=== PATIENT | male | born 1970 | race African-American/Black ===

== ENCOUNTER 2016-12-30 16:09 | Inpatient (IN) ==
--- NOTE | 2016-12-30 17:53 | PROVIDER DOCUMENTATION ---
This chart was entered by Trenton Cisneros Scribe, acting as scribe for Victor Manuel Parrish CRNP. HPI-General Adult - General Source: patient - History of Present Illness -Gen Adult Location of Pain/Injury: reports: lower extremity Quality of Pain: reports: dull Severity: reports: moderate Onset/Duration: reports: unsure Timing: reports: still present, constant Context/Activities at Onset: reports: other Modifying Factors: improves with: nothing Associated Symptoms: denies: back/neck pain, chest pain, diarrhea, fever/chills , nausea, shortness of breath, vomiting Similar Symptoms Previously?: Yes Recently seen or treated by another doctor?: Yes <Binta Thorne - Last Filed: 12/30/16 19:46> <Mandeep He I - Last Filed: 01/02/17 01:12> - General Source: patient - History of Present Illness -Gen Adult Nature of Presenting Problems: Patient is a 46 y/o M that presents to the ER with bilateral lower extremities swelling and redness. Has been followed by Dr.Leroy Ortiz and being treated for cellulitis Location of Pain/Injury: reports: lower extremity (bilateral lower) Quality of Pain: reports: dull Severity: reports: moderate Onset/Duration: reports: unsure Timing: reports: still present, constant Context/Activities at Onset: reports: other (infection) Modifying Factors: improves with: nothing Associated Symptoms: denies: back/neck pain, chest pain, diarrhea, fever/chills , nausea, shortness of breath, vomiting Similar Symptoms Previously?: Yes Recently seen or treated by another doctor?: Yes <Victor Manuel Parrish - Last Filed: 01/02/17 15:49> - General Chief Complaint: Edema Stated Complaint: SENT BY DR ORTIZ FOR EVAL Time Seen by Provider: 12/30/16 17:00 Allergies/Adverse Reactions: Patient Allergies Allergy/AdvReac Type Severity Reaction Status Date / Time Sulfa (Sulfonamide Allergy HIVES Verified 12/30/16 17:25 Antibiotics) sulfamethoxazole Allergy HIVES Verified 12/30/16 17:25 [From Bactrim] trimethoprim [From Bactrim] Allergy HIVES Verified 12/30/16 17:25 Home Medications: Home Medication List Medication Instructions Recorded Confirmed Last Taken Type Allopurinol 300 mg PO DAILY 06/27/16 12/30/16 12/30/16 05:00 History Amlodipine [Norvasc] 5 mg PO DAILY 06/27/16 12/30/16 12/30/16 05:00 History Cholecalciferol (Vitamin D3) 50,000 unit PO DIRECTED 06/27/16 12/30/16 05:00 History [D3-50] Cyclobenzaprine [Flexeril] 10 mg PO HS 06/27/16 12/30/16 12/29/16 21:00 History Glipizide [Glipizide ER] 10 mg PO DAILY 06/27/16 12/30/16 12/30/16 05:00 History Ibuprofen/Famotidine [Duexis 1 each PO TID 06/27/16 12/30/16 12/30/16 05:00 History 800-26.6 mg Tablet] Levothyroxine [Synthroid] 0.2 microgm PO DAILY 06/27/16 12/30/16 12/30/16 05:00 History Metoprolol [Lopressor] 50 mg PO DAILY 06/27/16 12/30/16 12/30/16 05:00 History Sitagliptin Phosphate [Januvia] 100 mg PO DAILY 06/27/16 12/30/16 12/30/16 05: 00 History Calcium Citrate/Vitamin D3 1 each PO DAILY 12/01/16 12/30/16 12/29/16 05:00 History [Calcium Citrate - Vit D3 Tab] Cyanocobalamin [Vitamin B-12] 500 microgm PO DAILY 12/01/16 12/30/16 12/30/16 05 :00 History Fluticasone 50 Mcg Nasal [place] 2 spray RODERICK DAILY 12/01/16 12/30/16 12/30/16 05: 00 History [Flonase] Iron 65 mg PO DAILY 12/01/16 12/30/16 12/30/16 05:00 History Multivitamin [Men's Multi-Vitamin] 1 each PO DAILY 12/01/16 12/30/16 12/30/16 05 :00 History Phytonadione [Vitamin K] 100 mcg PO DAILY 12/01/16 12/30/16 12/30/16 05:00 History Pyridoxine HCl [Vitamin B-6] 100 mg PO DAILY 12/01/16 12/30/16 12/30/16 05:00 History Vitamin A 8,000 unit PO DAILY 12/01/16 12/30/16 12/30/16 05:00 History Vitamin E 400 unit PO DAILY 12/01/16 12/30/16 12/30/16 05:00 History Montelukast [Singulair] 10 mg PO QHS 12/30/16 12/30/16 12/29/16 21:00 History Hydrochlorothiazide 25 mg PO DAILY #30 tablet 01/01/17 Unknown Rx Losartan [Cozaar] 100 mg PO DAILY #30 tablet 01/01/17 Unknown Rx Review of Systems - Adult - REVIEW OF SYSTEMS - ADULT Constitutional: reports: no symptoms reported. denies: chills, fever Eyes: reports: no symptoms reported Ears, Nose, Mouth & Throat: reports: no symptoms reported Cardiovascular: reports: edema. denies: chest pain, orthopnea, palpitations Respiratory: denies: cough, shortness of breath, wheezing Gastrointestinal: denies: abdominal pain, diarrhea, difficulty swallowing, nausea, vomiting Genitourinary: denies: dysuria, frequency, hematuria Musculoskeletal: reports: no symptoms reported Integumentary: reports: see HPI, skin sores/ulcer (Bilateral lower extremity edema with erythema and hot to touch.) Neurological: reports: no symptoms reported Psychiatric: reports: no symptoms reported Endocrine: reports: no symptoms reported Hematologic/Lymphatic: reports: no symptoms reported Allergic/Immunologic: reports: no symptoms reported All Other Systems: Reviewed and Negative <Binta Thorne - Last Filed: 12/30/16 19:46> - REVIEW OF SYSTEMS - ADULT Constitutional: reports: no symptoms reported. denies: chills, fever Eyes: reports: no symptoms reported Ears, Nose, Mouth & Throat: reports: no symptoms reported Cardiovascular: reports: edema. denies: chest pain, orthopnea, palpitations Respiratory: denies: cough, shortness of breath, wheezing Gastrointestinal: denies: abdominal pain, diarrhea, difficulty swallowing, nausea, vomiting Genitourinary: denies: dysuria, frequency, hematuria Musculoskeletal: reports: no symptoms reported Integumentary: reports: see HPI Neurological: reports: no symptoms reported Psychiatric: reports: no symptoms reported Endocrine: reports: no symptoms reported Hematologic/Lymphatic: reports: no symptoms reported Allergic/Immunologic: reports: no symptoms reported All Other Systems: Reviewed and Negative <Victor Manuel ParrishOlga - Last Filed: 01/02/17 15:49> Past History - Adult - PAST MEDICAL HISTORY-ADULT Review of Records: reports: Old Records Reviewed, Nursing Assessment Review, Medications Reviewed, Social history reviewed & non-contributory. - IMMUNIZATION STATUS Childhood Immunizations: See Nurse Assessment Flu Vaccine: See Nurse Assessment - FAMILY HISTORY Family History: reviewed, not pertinent - SOCIAL HISTORY Smoking: non-smoker <Binta Thorne - Last Filed: 12/30/16 19:46> - PAST MEDICAL HISTORY-ADULT Review of Records: reports: Old Records Reviewed, Nursing Assessment Review, Medications Reviewed Cardiovascular: reports: HTN Musculoskeletal: reports: arthritis Endocrine/Immune: reports: Diabetes, thyroid disorder Other Conditions: reports: denies history - PRIOR SURGERIES/PROCEDURES Surgical/Procedure History: reports: cholecystectomy, orthopedic (extremity), joint replacement, gastric bypass - IMMUNIZATION STATUS Childhood Immunizations: See Nurse Assessment Flu Vaccine: See Nurse Assessment - FAMILY HISTORY Family History: reviewed, not pertinent - SOCIAL HISTORY Smoking: non-smoker Living Situation: family <Victor Manuel ParrishOlga - Last Filed: 01/02/17 15:49> Physical Exam-General - PHYSICAL EXAM-ADULT Initial Vital Signs Reviewed: Yes - CONSTITUTIONAL General Appearance: alert, mild distress. negative: anxious, lethargic, slow to respond, obtunded, combative - EYES Eyes: PERRL/EOMI, pink conjunctivae. negative: conjuctival exudate, scleral icterus, subconjunctival hemorrhage - HEAD, EARS, NOSE, MOUTH & THROAT HENMT: normocephalic/atraumatic, moist mucous membranes, normal ENT inspection. negative: angioedema, frontal tenderness, maxillary tenderness - NECK Neck: full range of motion, normal inspection. negative: lymphadenopathy, thyromegaly - RESPIRATORY Respiratory: lungs clear, normal breath sounds, no respiratory distress, no accessory muscle use. negative: crackles, rales, rhonchi, stridor, wheezing, splinting, decreased rate, increased rate - CARDIOVASCULAR Cardiovascular: no JVD, no murmur, tachycardia. negative: extra beats, friction rub, irregularly irregular - GASTROINTESTINAL (ABDOMEN) Abdominal Exam: normal bowel sounds, non tender, soft, no organomegaly, no pulsatile mass. negative: distended, guarding, rigid, rebound, tenderness, hernia, mass - LYMPHATIC Lymphatic: no adenopathy. negative: axilla node tender, cervical node tenderness - MUSCULOSKELETAL Back Exam: normal inspection, no CVA tenderness, no vertebral tenderness. negative: ecchymosis, swelling, vertebral tenderness Extremity: erythema, swelling Peripheral Pulses: radial (R): 2+, radial (L): 2+ - SKIN Integumentary: erythema, warm. negative: cyanosis, diaphoresis, ecchymosis, jaundice, mottled, pallor, petechiae, purpura, rash - NEUROLOGIC Neurologic: grossly normal, no motor/sensory deficits. negative: aphasia, facial droop, focal weakness, motor weakness, sensory deficit - PSYCHIATRIC Psych/Mental Status: normal mood/affect, normal thought content, normal thought process, oriented x 3. negative: anxious, paranoid, tearful <Binta Thorne - Last Filed: 12/30/16 19:46> - PHYSICAL EXAM-ADULT Initial Vital Signs Reviewed: Yes - CONSTITUTIONAL General Appearance: alert, mild distress - EYES Eyes: PERRL/EOMI, pink conjunctivae - HEAD, EARS, NOSE, MOUTH & THROAT HENMT: normocephalic/atraumatic, moist mucous membranes, normal ENT inspection - NECK Neck: full range of motion, normal inspection - RESPIRATORY Respiratory: lungs clear, normal breath sounds, no respiratory distress, no accessory muscle use - CARDIOVASCULAR Cardiovascular: tachycardia - GASTROINTESTINAL (ABDOMEN) Abdominal Exam: normal bowel sounds, non tender, soft, no organomegaly, no pulsatile mass - MUSCULOSKELETAL Extremity: erythema (bilateral lower extremities), swelling (bilateral lower extremities) - SKIN Integumentary: erythema (bilateral lower extremities), warm (bilateral lower extremities) - NEUROLOGIC Neurologic: grossly normal, no motor/sensory deficits - PSYCHIATRIC Psych/Mental Status: normal mood/affect, normal thought content, normal thought process, oriented x 3 <Victor Manuel Parrish - Last Filed: 01/02/17 15:49> Progress - PLAN OF CARE/RESULTS Progress/Plan/Lab Results: Vital Signs - 8 hr 12/30/16 16:41 Temperature 97.9 F Pulse Rate 109 H Respiratory Rate 18 Blood Pressure 117/65 O2 Sat by Pulse Oximetry 100 Laboratory Results - last 24 hr 12/30/16 12/30/16 17:40 17:40 WBC 11.93 H RBC 3.34 L Hgb 9.7 L Hct 29.5 L MCV 88.3 MCH 29.0 MCHC 32.9 L RDW Std Deviation 12.1 Plt Count 279 MPV 10.1 Immature Gran % (Auto) 0.3 Neut % (Auto) 80.9 H Lymph % (Auto) 6.4 L Kershaw % (Auto) 11.2 H Eos % (Auto) 1.1 Baso % (Auto) 0.1 Immature Gran # (Auto) 0.03 Neut # (Auto) 9.66 H Lymph # (Auto) 0.76 L Kershaw # (Auto) 1.34 H Eos # (Auto) 0.13 Baso # (Auto) 0.01 Plasma Lactate 1.6 Orders Category Date Time Status Regular Diet Diet 12/30/16 18:45 Active BLOOD CULTURE [BLDCUL] Stat Lab 12/30/16 18:43 Received CBC WITH ELECTRONIC DIFF [HEME] Stat Lab 12/30/16 17:40 Completed COMPREHENSIVE METABOLIC PANEL [CHEM] Stat Lab 12/30/16 17:40 Received LACTATE, PLASMA [CHEM] Stat Lab 12/30/16 17:40 Completed Discussed results and plan of care with patient. Patient agrees with plan and verbalizes understanding. Result Diagrams: 12/30/16 17:40 12/30/16 17:40 - CONSULTS/PCP/HOSPITALIST Notification #1 *Consult/PCP/Hospitalist*: Dr. Valdovinos Time Discussed: 19:11 Reason/Comments: Admission Consult Disposition: Will see in ED, Admit <Binta Thorne - Last Filed: 12/30/16 19:46> - PLAN OF CARE/RESULTS Progress/Plan/Lab Results: 12/30/16 18:43 - Final Blood Orders Category Date Time Status Admit - [facility] Routine AdmDCTranf 12/30/16 21:20 Ordered Activity - Up with Assistance ORDERED Care 12/30/16 21:20 Active FSBS/Accucheck Result AC + HS Care 12/30/16 21:20 Active Intake and Output-Strict ORDERED Care 12/30/16 21:20 Active Misc. NRSG Communication Order DIRECTED Care 12/30/16 21:20 Active Nursing- MD Consult Request ROUTINE Care 12/30/16 21:20 Active Vital Signs Order Q 8-HR ASSESS Care 12/30/16 21:20 Active Physician/Provider Consults Routine Cons 12/30/16 21:20 Ordered Diabetic Diet Diet 12/30/16 20:18 Completed A1C HGB W EST AVG GLUCOSE [CHEM] Stat Lab 12/30/16 18:48 Completed BLOOD CULTURE [BLDCUL] Stat Lab 12/30/16 18:43 Results CBC WITH DIFF [HEME] Routine Lab 12/31/16 05:30 Completed CBC WITH ELECTRONIC DIFF [HEME] Stat Lab 12/30/16 17:40 Completed COMPREHENSIVE METABOLIC PANEL [CHEM] Routine Lab 12/31/16 05:30 Completed COMPREHENSIVE METABOLIC PANEL [CHEM] Stat Lab 12/30/16 17:40 Completed GRAM STAIN [BLDCUL] Stat Lab 12/30/16 18:43 Results LACTATE, PLASMA [CHEM] Stat Lab 12/30/16 17:40 Completed MAGNESIUM [CHEM] Routine Lab 12/31/16 05:30 Completed Acetaminophen [Tylenol] Med 12/30/16 21:20 Discontinued 650 mg PO Q6H PRN PRN Calcium Citrate/Vitamin D [Citracal + D] Med 12/31/16 09:00 Discontinued 1 each PO DAILY Cyanocobalamin [Vitamin B-12] Med 12/31/16 09:00 Discontinued 500 microgm PO DAILY Enoxaparin [Lovenox] Med 12/30/16 21:20 Discontinued 40 mg SUBQ Q24H Ergocalciferol (Vitamin D2) [Vitamin D] Med 01/02/17 09:00 Discontinued 50,000 unit PO TuSa Ferrous Sulfate Med 12/31/16 09:00 Discontinued 325 mg PO DAILY Fluticasone 50 Mcg Nasal [place] [Flonase] Med 12/31/16 09:00 Discontinued 2 spray RODERICK DAILY Furosemide [Lasix] Med 12/30/16 21:20 Discontinued 20 mg IV Q12H Furosemide [Lasix] Med 12/30/16 19:42 Discontinued 30 mg IV NOW ONE Hydrochlorothiazide Med 12/31/16 09:00 Discontinued 25 mg PO DAILY Hydrocodone/APAP 10 mg/325 mg [Cypress-10] Med 12/30/16 21:20 Discontinued 1 each PO Q4H PRN PRN Insulin Lispro [Humalog] Med 12/30/16 21:20 Discontinued See Protocol SUBQ NOW ONE Levothyroxine [Synthroid] Med 12/31/16 12:30 Discontinued 200 microgm PO ACB Metoprolol [Lopressor] Med 12/31/16 09:00 Discontinued 50 mg PO DAILY Multivit,Fe,Ca,FA & Min [Thera M Plus] Med 12/31/16 09:00 Discontinued 1 each PO DAILY Ondansetron [Zofran] Med 12/30/16 21:20 Discontinued 4 mg IV Q4H PRN PRN Patient's Own Med Med 12/31/16 09:00 Discontinued 1 each PO DAILY Pharmacy Order [Vancomycin IV Per Pharmacy] Med 12/30/16 21:20 Discontinued 1 each MISC DIRECTED Pyridoxine Med 12/31/16 09:00 Discontinued 100 mg PO DAILY Vancomycin 1,500 mg Med 12/30/16 20:45 Discontinued 0.9% Sodium Chloride Inj [Ns] 250 ml IV NOW Transfer/Admit Order [TRANSFER] Routine Transfer 12/30/16 19:47 Completed Result Diagrams: 01/01/17 05:20 01/01/17 05:20 <Mandeep He I - Last Filed: 01/02/17 01:12> - PLAN OF CARE/RESULTS Progress/Plan/Lab Results: Vital Signs - 8 hr 12/30/16 16:41 Temperature 97.9 F Pulse Rate 109 H Respiratory Rate 18 Blood Pressure 117/65 O2 Sat by Pulse Oximetry 100 Result Diagrams: 01/01/17 05:20 01/01/17 05:20 - CHANGE OF SHIFT REPORT (ED Provider) Report Given and Care Transferred to:: MELLY Diaz Items Pending: Labs <Victor Manuel Parrish - Last Filed: 01/02/17 15:49> Departure - Departure Date of Disposition Decision: 12/30/16 Time of Disposition Decision: 19:47 Certified Medical Emergency: Emergent - Critical Care Note This patient required my direct & personal management of CC.: No <Binta Thorne - Last Filed: 12/30/16 19:46> - Departure Certified Medical Emergency: Emergent <Mandeep He Last Filed: 01/02/17 01:12> - Departure Date of Disposition Decision: 12/30/16 Time of Disposition Decision: 21:00 Certified Medical Emergency: Emergent - Critical Care Note This patient required my direct & personal management of CC.: No <Victor Manuel Parrish - Last Filed: 01/02/17 15:49> - Departure DIAGNOSIS: Renal insufficiency Cellulitis Qualifiers: Site of cellulitis: extremity Site of cellulitis of extremity: lower extremity Laterality: unspecified laterality Qualified Code(s): L03.119 - Cellulitis of unspecified part of limb Anemia Qualifiers: Anemia type: unspecified type Qualified Code(s): D64.9 - Anemia, unspecified Disposition: ADMITTED INPATIENT 09 Condition: Stable Attestation - Physician/ LEAH Attestation #2 Shift Change Time: 18:00 Patient care was provided by Advanced Practice Provider:: Yes Advanced Practice Provider:: Binta Thorne (The physician is on site and available for consultation but did not have face to face contact with the patient. ) The physician spent face to face time with patient:: No <Binta Thorne - Last Filed: 12/30/16 19:46> - Physician/ LEAH Attestation Patient care was provided by Advanced Practice Provider:: Yes Advanced Practice Provider:: Victor Manuel Parrish Advanced Practice Provider documentation review:: The Mid-level provider documentation, treatment plan and medical decision making was reviewed by the physician who agrees with all treatment and medical decision making by the MLP. The physician spent face to face time with patient:: No Advanced Practice Provider documentation review:: Supervising physician onsite and consulted in the evaluation and care of this patient. The physician did not have a face to face encounter with the patient. - Physician/ LEAH Attestation #2 Advanced Practice Provider documentation review:: Supervising physician onsite and consulted in the evaluation and care of this patient. The physician did not have a face to face encounter with the patient. <Victor Manuel Parrish - Last Filed: 01/02/17 15:49> This chart was documented by the indicated scribe, (Trenton Cisneros Scribe) and accurately reflects the services I performed and decisions made by me, Victor Manuel Parrish CRNP, as attested by the provider's signature.
[2016-12-30 18:49] LABS: MANUAL DIFF NEEDED? NO
[2016-12-30 18:54] LABS: BASO% 0.1 % (0.0-0.8); EOS# 0.13 X1000 (0.0-0.7); EOS% 1.1 % (0.0-10.0); HEMATOCRIT 29.5 % (42.0-52.0); HEMOGLOBIN 9.7 g/dL (14.0-18.0); IMM GRAN# 0.03 X1000 (0.0-0.04); IMM GRAN% 0.3 % (0.0-0.5); LYMPH# 0.76 X1000 (1.2-3.4); LYMPH% 6.4 % (20.5-51.1); MCHC 32.9 g/dL (33-37); MCV 88.3 FL (81-99); MONO# 1.34 X1000 (0.11-0.59); MONO% 11.2 % (1.7-9.3); MPV 10.1 FL (7.4-10.4); NEUT% 80.9 % (42.2-75.2); PLT 279 X1000 (130-400); RBC 3.34 XMIL (4.7-6.1)
[2016-12-30 19:40] LABS: CALCIUM 8.2 mg/dL (8.8-10.2); POTASSIUM 3.6 mmol/L (3.5-5.1); TOTAL BILIRUBIN 0.11 mg/dL (0.20-1.00); TOTAL PROTEIN 6.3 g/dL (6.3-8.3)
[2016-12-30] MEDS ORDERED: LASIX IV ONE (19:42)
[2016-12-30] MEDS ORDERED: VANCOMYCIN 1,500 MG in NS 250 ML IV ONE (20:45)
[2016-12-30] MEDS ORDERED: VANCOMYCIN IV PER PHARMACY MISC SCH (21:20)
[2016-12-30] MEDS ORDERED: TYLENOL PO PRN (21:20)
[2016-12-30] MEDS ORDERED: HUMALOG SUBQ ONE (21:20)
[2016-12-30] MEDS ORDERED: ZOFRAN IV PRN (21:20)
[2016-12-30 21:54] LABS: HEMOGLOBIN A1C 4.9 % (4.8-6.0)
--- NOTE | 2016-12-30 22:20 | HISTORY AND PHYSICAL ---
PATIENT OF: Jan Salazar MD REASON FOR ADMISSION: 2-day history of lower extremity swelling and pain. HISTORY OF PRESENT ILLNESS: Mr. 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 Darwin Ortiz for the last 3 weeks. He reports that he was seen at the IV infusion center yesterday and they gave him 2 L of normal saline because he was told that he was dehydrated. He said despite receiving 2 L of fluid he did not void at all. He reports that since he started the antibiotic, he has had persistent nonbloody diarrhea, up to 10 times a day. He denies any abdominal pain. No nausea, vomiting, or other GI symptoms. He reports that later that day, about 8 hours after he received IV infusion he noticed that his lower extremities were swelling. He also noted simultaneous pain with this. No fever or chills. No antecedent trauma to his legs. He also noted inside blister formation early hours of this morning and one of the blisters ruptured on his right lower extremity with clear fluid draining down his leg. He states that the pain in his leg is worse whenever he tries to stand or ambulate. The patient was seen by Dr. Darwin Ortiz in his office today for follow-up and he referred him to the ER to be evaluated with a presumptive diagnosis of cellulitis. The patient denies any rash elsewhere, arthralgias or night sweats. No myalgia. No cardiorespiratory complaints. REVIEW OF SYSTEMS: All systems are negative. Positive findings per HPI. ALLERGIES: Bactrim which causes him to have rash on his extremities. FAMILY HISTORY: He reports diabetes in both parents. No heart disease or cancer. SURGICAL HISTORY: Gastric bypass surgery. Knee arthroscopic surgery. Cholecystectomy. Wart excision on left heel. SOCIAL HISTORY: Lives with his . He is disabled. Does not use any illicit drugs. HOME MEDICATIONS: Allopurinol 200 mg daily, Norvasc 5 mg daily, calcium citrate , vitamin D, 1 tablet daily, vitamin D3, 50,000 units weekly, 500 mcg of B12, Flexeril 10 mg at bedtime, Flonase 2 puffs daily, glipizide ER 10 mg daily, hydrochlorothiazide 25 mg daily, Duexis one 3 times a day, indomethacin 500 mg daily, iron 65 mg daily, Synthroid 200 mg daily, Cozaar 100 mg daily, multivitamin tablets once a day, vitamin K 1000 mcg daily, vitamin B6 100 mg daily, Januvia 100 mg daily. Vitamin A 8000 mg daily. Vitamin E 400 mg daily. LABORATORY WORK: White count 11,000, hemoglobin and hematocrit 9 and 29, platelets 270,000, 81% neutrophils. Chemistry: BUN is 31, creatinine 2.6 up from 2.4 two days ago and then from 1.2 about a week ago. Glucose 213, bicarb 17, alkaline phosphatase 154, lactate 1.6. PHYSICAL EXAMINATION: VITAL SIGNS: Blood pressure 117/66, heart rate 109, temperature 97.9, respiratory rate 18, 100% on room air. GENERAL: He is a middle-aged man who is in acute distress. He is alert and oriented x3. Normal mood and affect. HEENT: Head is normocephalic, atraumatic. Eyes TROY, EOMI. He is anicteric, not pale. ENT exam is grossly normal. No central cyanosis noted. NECK: Supple with some degree of JVP elevation of the jaw. No bruit or thyromegaly. CHEST: Clear to auscultation. Good air entry both lung nagel. CARDIOVASCULAR: 1st and 2nd heart sounds heard. No gallops, murmurs, rubs. Rhythm is regular.Abdomen: Soft with old surgical incisional scar in the left upper quadrant at midline. No mass or organomegaly. Bowel sounds are normal. Rectal: Deferred at this time. Extremities: Patient has 2+ pitting edema up to his knee, extremity tender and warm with some degree of erythema in the legs. He has a 2 cm blister around the left lateral malleolus and a small left subcentimeter blister on the proximal part of the tibia. Pulses are intact in all extremities with good volume. No clubbing or peripheral cyanosis. No interdigital maceration. Lower extremities are warm to touch. Neurologic: No focal deficits. Skin: See above. Otherwise grossly unremarkable. Neuromuscular: Exam is grossly normal. ASSESSMENT: 1. Acute kidney injury probably secondary to medications and depleted intravascular volume from antibiotic-induced diarrhea. My suspicion is that patient has an oliguric- type urinary tract infection and was hydrated but was unable to void, and some of this fluid was displaced in the interstitium of his lower extremities causing lower extremity swelling. I am a little bit concerned regarding his tachycardia even though he denies any cardiorespiratory symptoms, I would not be surprised if he has started to develop early onset mild pulmonary edema. We will start patient on modest doses of Lasix to see if he will avoid. We will check urinary indices and order a retroperitoneal ultrasound since he is a man and may have coexistent urinary tract prostatic symptoms. Consult Dr. Osei to see patient. 2. Probable cellulitis. Start patient on vancomycin. Also continue the Invanz per Dr. Ortiz who we have consulted already. Keep legs elevated. 3. Type 2 diabetes. Start patient on low sliding scale. Discontinue glipizide. 4. Hypertension. Currently stable. We will hold blood pressure medications if systolic blood pressure is less than 150. 5. Gout. Currently stable. In hind sight, I do believe this gentleman's kidney failure was due to the fact that he was intravascularly depleted, but was taking high doses of indomethacin, ibuprofen, Cozaar, hydrochlorothiazide, which likely compounded and caused him to go into acute kidney failure. I have discontinued all his medications and will follow his urine indices tomorrow. He was given Lasix to prevent fluid overload. I suspect the dose may need to be increased. Input and output need to be followed closely. Deep venous thrombosis prophylaxis will be with Lovenox. cc: MD Jan Macias MD MTDD
[2016-12-30] MEDS: LASIX IV SCH (22:27)
[2016-12-30] MEDS: NORCO-10 PO PRN (22:27)
[2016-12-30] MEDS: PEPCID PO SCH (22:27)
[2016-12-30] MEDS: LOVENOX SUBQ SCH (22:27)
[2016-12-30] MEDS ORDERED: VANCOMYCIN 500 MG/NS 500 MG/100 ML IVPB IV ONE (22:30)
[2016-12-31] MEDS: NORCO-10 PO PRN ×2 (05:30→20:41)
[2016-12-31 06:14] LABS: MANUAL DIFF NEEDED? NO
[2016-12-31 06:15] LABS: BASO% 0.2 % (0.0-0.8); EOS# 0.36 X1000 (0.0-0.7); EOS% 3.1 % (0.0-10.0); HEMATOCRIT 29.6 % (42.0-52.0); HEMOGLOBIN 9.9 g/dL (14.0-18.0); IMM GRAN# 0.03 X1000 (0.0-0.04); IMM GRAN% 0.3 % (0.0-0.5); LYMPH# 1.06 X1000 (1.2-3.4); LYMPH% 9.2 % (20.5-51.1); MCH 29.3 PG (27-31); MCHC 33.4 g/dL (33-37); MCV 87.6 FL (81-99); MONO# 0.76 X1000 (0.11-0.59); MONO% 6.6 % (1.7-9.3); MPV 9.6 FL (7.4-10.4); NEUT% 80.6 % (42.2-75.2); PLT 293 X1000 (130-400); RBC 3.38 XMIL (4.7-6.1)
[2016-12-31 06:40] LABS: ALBUMIN 2.9 g/dL (3.5-5.0); CALCIUM 8.5 mg/dL (8.8-10.2); MAGNESIUM 1.8 mg/dL (1.5-2.7); POTASSIUM 3.3 mmol/L (3.5-5.1); TOTAL BILIRUBIN 0.19 mg/dL (0.20-1.00); TOTAL PROTEIN 6.1 g/dL (6.3-8.3)
--- NOTE | 2016-12-31 08:29 | Diag Imaging Result Doc PS360 ---
EXAM: US RENAL 2 (RETROPER) COMPLETE HISTORY: ANASTASIIA TECHNIQUE: COMPARISON: None. FINDINGS: The right kidney measures 11.7 x 4.9 x 6.3 cm. Normal echotexture and cortical thickness. No stone or hydronephrosis. No renal mass. The left kidney measures 10.8 x 6.3 x 5.9 cm. Normal renal echotexture and cortical thickness. No renal stone or hydronephrosis. No renal mass. The urinary bladder is not distended. IMPRESSION: Normal renal ultrasound. Electronically signed by Robert Lopez 12/31/2016 8:27 AM
[2016-12-31] MEDS ORDERED: HYDROCHLOROTHIAZIDE PO SCH (09:00)
[2016-12-31] MEDS: PYRIDOXINE PO SCH (09:55)
[2016-12-31] MEDS: PEPCID PO SCH ×2 (09:55→20:42)
[2016-12-31] MEDS: THERA M PLUS PO SCH (09:55)
[2016-12-31] MEDS: FERROUS SULFATE PO SCH (09:55)
[2016-12-31] MEDS: VITAMIN B-12 PO SCH (09:55)
[2016-12-31] MEDS: CITRACAL + D PO SCH (09:56)
[2016-12-31] MEDS: LOPRESSOR PO SCH (09:56)
[2016-12-31] MEDS: LASIX IV SCH ×2 (09:56→20:41)
[2016-12-31] MEDS: PATIENT'S OWN MED PO SCH (10:05)
--- NOTE | 2016-12-31 11:43 | CONSULTATION ---
DATE OF CONSULTATION: 12/31/2016 REASON FOR CONSULTATION: Acute kidney injury. HISTORY OF PRESENT ILLNESS: Mr. Swenson is a 46-year-old man with longstanding diabetes as well as hypertension and gout. He does not have known kidney disease. He has been under Dr. Darwin rOtiz's care for a jaw abscess. He has a PICC line and has been receiving vancomycin. He had routine laboratory data which found abnormalities so he was treated with 2 L of normal saline because he was "dehydrated". He has had no urine output following that and therefore repeat labs were performed and found more abnormalities so he was admitted to the hospital. In this context, he was also having severe diarrhea up to 10 times a day that was nonbloody. This started since the antibiotics were started. He had no shortness of breath, nausea, or vomiting. On this basis, he was admitted to the hospital. He had urine electrolytes performed on the which found urine sodium of 121. He was given a dose of furosemide and probably had a nice diuretic response by his report. No PND or orthopnea. No chest pain. No other problems. He has had swelling in the legs as well as some tenderness and a few blisters. PAST MEDICAL HISTORY: As above. HOME MEDICATIONS: Include allopurinol, amlodipine, calcium citrate, vitamin D, Flexeril, Flonase, glipizide, hydrochlorothiazide, Duexis, indomethacin, iron, Synthroid, Cozaar, vitamin K, B6, Januvia, vitamin A. He also was on Januvia. ALLERGIES: Bactrim. SOCIAL HISTORY: He is and lives with his . No alcohol or tobacco. FAMILY HISTORY: Positive for diabetes. REVIEW OF SYSTEMS: Otherwise negative. PHYSICAL EXAMINATION: Vital Signs: Blood pressure 115/63, heart rate 109, respirations 18, and afebrile. Generally: He is a middle-aged man in no acute distress. Skin: Warm and dry except as below. HEENT: Pupils are equal and round. Conjunctivae are pink and moist. Neck veins are distended. Trachea is midline. Oropharynx is clear. Tongue is normal. Heart: Regular with S4. No murmurs. Lungs: Have equal breath sounds. No crackles or wheezes. Abdomen: Soft, nontender. Normal bowel sounds. No organomegaly or masses or bruits. Extremities: Have 1+ edema with mild erythema over the anterior lower legs bilaterally and several small vesicles. No clubbing or cyanosis. LABORATORY DATA: Creatinine 2. IMPRESSION: Acute kidney injury. Presumably acute tubular necrosis given his urine sodium and lack of response to intravenous fluids. He was taking 2 different nonsteroidal anti-inflammatory drugs in addition to Cozaar. Certainly, this combination of medications would predispose him to acute atubular necrosis in the context of volume depletion. At any rate, he is responding nicely to intravenous diuretics at this point. His creatinine is improving. Renal ultrasound was normal. Electrolytes and acid-base are acceptable. I agree with your care at this point. No further changes. cc: Nestor Osei MD
[2016-12-31] MEDS: HUMULIN R SUBQ SCH ×3 (12:11→20:41)
[2016-12-31] MEDS: FLONASE NAS SCH (15:01)
--- NOTE | 2016-12-31 16:18 | PROGRESS NOTE ---
DATE: 12/31/2016 PRESENT ILLNESS: The patient has been getting ertapenem for a right mandibular osteomyelitis. While on this he developed severe diarrhea. We checked it for Clostridium difficile toxin and it was negative. The patient was started on Imodium but he still had severe diarrhea. In addition to that, his legs became very swollen and painful and his creatinine started increasing. For all of those reasons, he was admitted to the hospital. RECOMMENDATIONS: I agree with keeping the patient on ertapenem to treat his jaw osteomyelitis. I have discontinued vancomycin in view of the fact that the patient already has some renal damage. Instead, I have started the patient on daptomycin. I have also ordered stools for Clostridium difficile toxin and for culture. PHYSICAL EXAMINATION: Vital Signs: Temperature is 99 degrees, pulse 93, respirations 18, blood pressure 126/72. General: This is a fairly healthy-appearing, middle-aged male. He is in no acute distress. Lungs: Clear to auscultation. Cardiovascular: Heart rate is regular. Abdomen: Soft and nontender. Ears, nose, and throat: The patient's right side of the mandible was not as swollen as it had been. It is not tender. Extremities: Both legs are edematous and there is a reddish tinge to both legs. They are tender but according to the patient, the legs are much less swollen and they are much less tender. Also, the erythema seems to be improving as well. LAB AND X-RAY: The patient's CBC shows a white count of 11,530, hemoglobin 9.9, and platelet count 293,000. Renal ultrasound was normal. Vancomycin level was 15.7. Alkaline phosphatase is 132. The creatinine is 2 and the GFR is 44. ASSESSMENT AND PLAN: I am going to continue with the patient's ertapenem for his jaw osteomyelitis. Also I have substituted daptomycin for vancomycin to treat the patient's leg cellulitis. The patient's comorbidities are that he has end-stage renal disease. He has jaw osteomyelitis which necessitated giving him an antibiotic. The patient also has diabetes mellitus, gout, hypothyroidism, and hypertension. I switched the patient from vancomycin to daptomycin. I am continuing ertapenem for the patient's leg cellulitis and mandibular osteomyelitis respectively. cc: Darwin Ortiz MD
[2016-12-31] MEDS ORDERED: CUBICIN 750 MG in NS 100 ML IV SCH (17:00)
--- NOTE | 2016-12-31 17:05 | PROGRESS NOTE ---
DATE: 12/31/2016 SUBJECTIVE: The patient is resting comfortably in bed. He states that the swelling in his leg has gone down since admission. He states that he has had at least 3 loose stools so far today. OBJECTIVE: Vital Signs: Temperature 99.2 degrees, blood pressure 148/89, heart rate 108, respirations 18, O2 saturations 100% on room air. General: This is an obese male lying in bed, in no acute distress. Head: Normocephalic, atraumatic. Heart: S1, S2. Normal. Tachycardic. Lungs: Clear to auscultation bilaterally. No wheezes, no rales. No rhonchi. Abdomen: Positive bowel sounds. Soft, obese, nontender, nondistended. Extremities: 2 to 3+ edema with mild erythema in the lower extremities. Neurologic: The patient is alert and oriented x3. LABS: White blood cell count 11, hemoglobin 9.9, hematocrit 29, platelets 293, 000. Sodium 141, potassium 3.3, chloride 106, CO2 21, BUN 29, creatinine 2, glucose 73. Magnesium 1.8, albumin 2.9. ASSESSMENT AND PLAN: 1. Right mandibular osteomyelitis. Continue on IV antibiotic therapy as directed by Dr. Ortiz. 2. Lower extremity cellulitis. Continue on IV antibiotic therapy. 3. Acute kidney injury. Improved. 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 4. Diarrhea. Dr. Ortiz has ordered stool for Clostridium difficile toxin. Will follow up on those results. 5. Obesity. Aware. 6. Vitamin D deficiency. Continue on vitamin D replacement. 7. Hypothyroidism. Continue on Synthroid. 8. Hypertension. Controlled. 9. Leukocytosis. Unchanged. Continue on IV antibiotic therapy. 10. Deep vein thrombosis prophylaxis. Continue on Lovenox. cc: Marli Bassett MD [facility]
[2016-12-31] MEDS: SYNTHROID PO SCH (18:48)
[2016-12-31] MEDS: LOVENOX SUBQ SCH (20:42)
[2016-12-31] MEDS ORDERED: VANCOMYCIN 1,750 MG in NS 250 ML IV SCH (22:00)
[2017-01-01 05:42] LABS: MANUAL DIFF NEEDED? NO
[2017-01-01 05:47] LABS: BASO% 0.1 % (0.0-0.8); EOS# 0.17 X1000 (0.0-0.7); EOS% 1.8 % (0.0-10.0); HEMOGLOBIN 9.3 g/dL (14.0-18.0); IMM GRAN# 0.06 X1000 (0.0-0.04); IMM GRAN% 0.6 % (0.0-0.5); LYMPH# 1.87 X1000 (1.2-3.4); MCHC 33.2 g/dL (33-37); MCV 87.2 FL (81-99); MONO# 1.37 X1000 (0.11-0.59); MONO% 14.7 % (1.7-9.3); MPV 9.3 FL (7.4-10.4); NEUT% 62.8 % (42.2-75.2); PLT 332 X1000 (130-400); RBC 3.21 XMIL (4.7-6.1)
[2017-01-01] MEDS: SYNTHROID PO SCH ×2 (05:51→06:45)
[2017-01-01] MEDS: NORCO-10 PO PRN ×3 (05:51→14:53)
[2017-01-01] MEDS: HUMULIN R SUBQ SCH ×2 (06:08→13:28)
[2017-01-01 06:11] LABS: AGAP 13; BUN 26 mg/dL (8-22); CALCIUM 8.6 mg/dL (8.8-10.2); CHLORIDE 103 mmol/L (98-107); COSMO 284; POTASSIUM 3.7 mmol/L (3.5-5.1); SODIUM 140 mmol/L (136-145); TCO2 24 mmol/L (25-35)
[2017-01-01 07:44] VITALS: BP 133/83
[2017-01-01] MEDS ORDERED: VANCOMYCIN 2,000 MG in NS 500 ML IV SCH (09:00)
[2017-01-01] MEDS: THERA M PLUS PO SCH (10:03)
[2017-01-01] MEDS: PYRIDOXINE PO SCH (10:03)
[2017-01-01] MEDS: FERROUS SULFATE PO SCH (10:03)
[2017-01-01] MEDS: LOPRESSOR PO SCH (10:03)
[2017-01-01] MEDS: PEPCID PO SCH (10:04)
[2017-01-01] MEDS: LASIX IV SCH (10:04)
[2017-01-01] MEDS: CITRACAL + D PO SCH (10:04)
[2017-01-01] MEDS: VITAMIN B-12 PO SCH (10:04)
[2017-01-01] MEDS: FLONASE NAS SCH (10:04)
[2017-01-01] MEDS: PATIENT'S OWN MED PO SCH (10:12)
--- NOTE | 2017-01-01 12:18 | PROGRESS NOTE ---
DATE: 12/30/2016 SUBJECTIVE: He states he is feeling better. His legs are not hurting or swollen. No shortness of breath. OBJECTIVE: Vital Signs: Blood pressure 133/83, heart rate 108, respiration 18, afebrile. General: He is in no acute distress. Skin: Warm and dry. Conjunctivae are pink. Pupils are equal. Neck: Neck veins are not distended. Heart: Regular without gallops. Lungs: Have equal breath sounds. No crackles. Abdomen: Soft, nontender. Bowel sounds present. Extremities: Have trace edema. No clubbing or cyanosis. LABORATORY DATA: Creatinine 1.5. IMPRESSION/PLAN: Acute kidney injury. Labs are improving. Physical exam is improving. The symptoms are improving. Okay for discharge from my perspective. Presumably acute tubular necrosis. cc: Nestor Osei MD
[2017-01-01] MEDS ORDERED: CULTURELLE PO ONE (15:11)
--- NOTE | 2017-01-01 15:34 | PROGRESS NOTE ---
DATE: 01/01/2017 PRESENT ILLNESS: The patient had been on ertapenem for his right mandibular osteomyelitis. On that he had severe diarrhea and then he went into renal failure. Currently his kidney function has improved and his creatinine now is down to 1.5. He has not been having any diarrhea. His legs which I thought had cellulitis look a lot better now that the fluid is out and they are no longer red or painful. MEDICATION: The patient has been receiving daptomycin. PHYSICAL EXAMINATION: Vital Signs: Temperature is 98.1 degrees, pulse 108, respirations 18, blood pressure 133/83. General: This is a fairly healthy-appearing, middle-aged male. He is in no acute distress. Lungs: Clear to auscultation. Cardiovascular: Regular heart rate. Extremities: The right arm has a PICC in it. The site is not swollen or tender. Both legs are less edematous. They are not erythematous and they are not tender. LAB AND X-RAY: Creatinine is down to 1.5. GFR is 26. Blood cultures are sterile. A stool for Clostridium difficile toxin is negative again. Stool for culture is pending. CBC shows a white count of 9350, hemoglobin 9.3, and platelet count 332,000. ASSESSMENT AND PLAN: The patient has mandibular osteomyelitis secondary to tooth infection. Our plan is to start the patient back on Invanz. The patient told me that he is going to take a probiotic and in the past when he has taken a probiotic with an antibiotic he has not been bothered by diarrhea so that is what he is going to do now. I will be seeing the patient back in my office in 3 weeks and by then he will have had approximately 5-5-1/2 weeks of treatment. COMORBIDITIES: He had poor dental hygiene. He also has diabetes mellitus and hypertension. cc: Darwin Ortiz MD
[2017-01-01] MEDS ORDERED: INVANZ 1 GM/NS 1 GM/50 ML IVPB IV ONE (16:00)
[2017-01-02] MEDS ORDERED: VITAMIN D PO SCH (09:00)
--- NOTE | 2017-01-02 16:59 | DISCHARGE SUMMARY ---
ADMISSION DATE: 12/30/2016 DISCHARGE DATE: 01/01/2017 ADMISSION DIAGNOSIS: 1. Acute kidney injury likely secondary to medications with depleted intravascular volume from antibiotic induced diarrhea. 2. Probable cellulitis. 3. Diabetes mellitus type 2. 4. Hypertension. 5. Gout. DISCHARGE DIAGNOSIS: 1. Right mandibular osteomyelitis. 2. Lower extremity cellulitis. 3. Acute kidney injury which had improved. 4. Diarrhea that was negative for Clostridium difficile. 5. Obesity. 6. Vitamin D deficiency continue on replacement. 7. Hypothyroidism, continue Synthroid. 8. Hypertension is controlled. 9. Leukocytosis continuing on antibiotic therapy for right mandibular osteomyelitis and for lower extremity cellulitis. 10. Acute tubular necrosis. CONSULTATIONS: Dr. Ortiz, Dr. Osei. PROCEDURES: None. HOSPITAL COURSE: Mr. Isrrael Swenson is a 46-year-old man with medical history of gout, hypertension, diabetes mellitus type 2 undergoing IV treatment for osteomyelitis of his jaw by Dr. Darwin Ortiz for the last 3 weeks. The patient reported that he was seen in the IV infusion center day before admission which at that time they gave him 2 L of saline because he was told he is dehydrated. He states that despite receiving 2 L of fluid he never voided. He also reports that since starting an antibiotic he had persistent diarrhea up to 10 times a day but during his stay was ruled out for any pathogens of the stool or colon. He denied abdominal pain, nausea or vomiting or any other GI symptoms. He also noticed day before admission that he started having swelling of the lower extremities after receiving IV fluids along with pain. Throughout the night prior to admission he noticed blisters forming with 1 that had burst prior to admission on the right lower extremity but no obvious trauma to that leg was sustained. On day of admission he was seen by Dr. Ortiz in office who referred him to come to the ER for presumptive diagnosis of cellulitis. Throughout his stay he was seen by Dr. Osei who presumed he had acute tubular necrosis given his urine sodium and lack of response to intravenous fluids. Apparently he was taking 2 different nonsteroidal anti-inflammatory drugs in addition to Cozaar which predisposed him to acute tubular necrosis in the context of volume depletion. They started diuretics intravenously which he responded well to, creatinine continued to improve during his stay. His renal ultrasound was normal and no further recommendations were made. Dr. Ortiz also saw him on as he had been following him as outpatient for the osteomyelitis of the mandible. His plan was to continue him on the ertapenem for the osteomyelitis. He used daptomycin for the vancomycin to treat the patient's leg cellulitis but in the end ultimately the patient was discharged with ertapenem for his cellulitis and mandibular osteomyelitis. He also had a plan of taking a probiotic secondary to excessive diarrhea while receiving IV antibiotic therapy. The plan is for 5-5-1/2 weeks of IV antibiotic therapy treatment. Micro from 1 set of blood cultures obtained from PICC line showed gram positive cocci and Dr. Ortiz is to be informed, stools were negative for any kind of infectious disease process. He was discharged with [facility] for IV therapy. DISCHARGE VITAL SIGNS: Temperature 98.1 degrees, heart rate 108, respiratory 18 , blood pressure 133/83, O2 saturation 99% room air. DISCHARGE MEDICATIONS: Ertapenem 1 g as ordered by Dr. Ortiz for 5-5-1/2 weeks, lactobacillus, allopurinol 300 mg p.o. daily, Norvasc 5 mg p.o. daily, calcium citrate, vitamin D3 1 tab p.o. daily, calciferol vitamin D3 50,000 units p.o. daily, vitamin B12 500 mcg p.o. daily, Flexeril 10 mg p.o. nightly, Flonase inhaled nasally daily, glipizide 10 mg p.o. daily, hydrochlorothiazide 25 mg p.o. daily to be delayed for 1 week prior to starting, ibuprofen famotidine 800/26.6 tablet 1 tab each p.o. 3 times daily, iron 65 mg p.o. daily, Synthroid 25 mcg p.o. daily, Cozaar 100 mg p.o. daily to be started 1 week after discharge, Toprol 50 mg p.o. daily, Singulair 10 mg p.o. nightly, men's multivitamin 1 tab p.o. daily, vitamin K 100 mcg p.o. daily, paroxedine vitamin B6 100 mg p.o. daily, Januvia 100 mg p.o. daily, vitamin A p.o. daily, vitamin E 400 units p.o. daily. DISCHARGE INSTRUCTIONS: Followup with Dr. Jan Salazar and Dr. Darwin Ortiz as outpatient and will follow Dr. Ortiz in 3 weeks. DISCHARGE LABORATORY DATA: White blood cells 9000, hemoglobin 9, hematocrit 28 , platelet count 332,000, sodium 140, potassium 3.7, BUN 26, creatinine is 1.5, glucose [address] up to 200, hemoglobin A1c 4.9, phosphorus 3.2, calcium 8.6, albumin 3.0. IMAGING: During hospital stay. Renal ultrasound, normal renal ultrasound. I have personally performed a face to face diagnostic evaluation on this patient , also I reviewed this patient lab work and, images and vital signs, this patient is good to be discharge, he will follow up with Dr Ortiz as an outpatient, we have a positive culture that showed gram + cocci but this is likely a contaminant, Will go home with IV , Dr Vladimir Hauser Dictated by MELLY Ye for Vladimir Sr MD cc: MD Vladimir Whitaker MD MTD
== END 2017-01-01 16:48 | disposition home or self-care (01) ==
LOC: ED 16:09 → SUATTDRO 21:01 → 4N 21:01
PROVIDERS: ATTEND Internal Medicine

== ENCOUNTER 2018-11-28 17:01 | Inpatient (IN) ==
[2018-11-28] MEDS ORDERED: NS 1,000 ML IV ONE (17:22)
[2018-11-28] MEDS ORDERED: ZOFRAN IV ONE (17:22)
[2018-11-28] MEDS ORDERED: TORADOL IV ONE (17:22)
--- NOTE | 2018-11-28 17:23 | PROVIDER DOCUMENTATION ---
HPI-General Adult - General Chief Complaint: Abdominal Pain Stated Complaint: l quad pain Time Seen by Provider: 11/28/18 17:15 Source: patient Allergies/Adverse Reactions: Patient Allergies Allergy/AdvReac Type Severity Reaction Status Date / Time Sulfa (Sulfonamide Allergy HIVES Verified 11/28/18 17:53 Antibiotics) sulfamethoxazole Allergy HIVES Verified 11/28/18 17:53 [From Bactrim] trimethoprim [From Bactrim] Allergy HIVES Verified 11/28/18 17:53 Home Medications: Home Medication List Medication Instructions Recorded Confirmed Last Taken Type Allopurinol 300 mg PO DAILY 06/27/16 03/09/17 03/08/17 07:00 History Amlodipine [Norvasc] 5 mg PO DAILY 06/27/16 03/09/17 03/08/17 07:00 History Cholecalciferol (Vitamin D3) 50,000 unit PO DIRECTED 06/27/16 03/09/17 03/08/17 07:00 History [D3-50] Cyclobenzaprine [Flexeril] 10 mg PO HS 06/27/16 03/09/17 03/07/17 21:00 History Glipizide [Glipizide ER] 10 mg PO DAILY 06/27/16 03/09/17 03/08/17 07:00 History Levothyroxine [Synthroid] 0.2 microgm PO DAILY 06/27/16 03/09/17 03/08/17 07:00 History Metoprolol [Lopressor] 50 mg PO DAILY 06/27/16 03/09/17 03/08/17 07:00 History Sitagliptin Phosphate [Januvia] 100 mg PO DAILY 06/27/16 03/09/17 03/08/17 07:00 History Cyanocobalamin [Vitamin B-12] 500 microgm PO DAILY 12/01/16 03/09/17 03/08/17 07:00 History Multivitamin [Men's Multi-Vitamin] 1 each PO DAILY 12/01/16 03/09/17 03/08/17 07:00 History Montelukast [Singulair] 10 mg PO QHS 12/30/16 03/09/17 03/07/17 21:00 History Hydrochlorothiazide 25 mg PO DAILY #30 tablet 01/01/17 03/09/17 03/08/17 07:00 Rx Losartan [Cozaar] 100 mg PO DAILY #30 tablet 01/01/17 03/09/17 03/08/17 07:00 Rx Ibuprofen/Famotidine [Duexis 1 tab PO BID 03/03/17 03/09/17 03/08/17 07:00 History 800-26.6 mg Tablet] Indomethacin 50 mg PO TID 03/03/17 03/09/17 03/08/17 13:00 History Tapentadol [Nucynta] 50 mg PO BID 03/03/17 03/09/17 03/08/17 07:00 History Oxycodone HCl/Acetaminophen 1 each PO Q4H PRN PRN #40 tablet 03/04/17 03/09/17 Unknown Rx [Percocet 7.5-325 mg Tablet] Iron 65 mg PO DAILY 03/09/17 03/09/17 03/08/17 07:00 History Pyridoxine HCl [Vitamin B-6] 100 mg PO DAILY 03/09/17 03/09/17 03/08/17 07:00 History Vitamin A 8,000 unit PO DAILY 03/09/17 03/09/17 03/08/17 07:00 History Vitamin E 400 unit PO DAILY 03/09/17 03/09/17 03/08/17 07:00 History Vitamin K2 100 mcg PO DAILY 03/09/17 03/09/17 03/08/17 07:00 History Amoxicillin/Potassium Clav 1 each PO BID #10 tablet 03/11/17 Unknown Rx [Augmentin 875-125 Tablet] Doxycycline 100 mg PO Q12H #30 tablet 03/11/17 Unknown Rx - History of Present Illness -Gen Adult Nature of Presenting Problems: Pt .is 48 yom that presents with c/o LLQ pain. Pt. reports he has a Hx of renal stones and states he thinks he is trying to pass one. He reports onset this morning. Location of Pain/Injury: reports: abdomen. denies: none, head, face, mouth, neck, chest, upper extremity, hand(s), back, pelvis, genitalia, lower extremity, feet, upper body, lower body, generalized, other Pain Radiation: reports: LLQ. denies: no radiation, arm(s), back, buttocks, chest, epigastric, feet, groin, jaw, flank (L), legs (lower), LUQ, neck, periumbilical, flank (R), RLQ, RUQ, shoulder(s), scapula, scrotal, sternal notch, suprapubic, legs (upper), urethral, vaginal, other Quality of Pain: reports: aching. denies: burning, cramping, stabbing, throbbing, tightness Severity: reports: moderate. denies: mild, severe Onset/Duration: reports: abrupt, this morning Timing: reports: still present. denies: improving, intermittent, getting worse Context/Activities at Onset: reports: none. denies: light activity, moderate activity, vigorous activity, recent emotional stress, recent physical stress, recent trauma history, possible bad food, cold exposure, eating, out of country travel, rest, sleep, sexual activity, other Modifying Factors: improves with: nothing Associated Symptoms: reports: diaphoresis, nausea, vomiting, other (LLQ pain). denies: denies symptoms, anxiety, arm pain, back/neck pain, chest pain, constipation, cough, diarrhea, dizziness, EENT symptoms, fatigue, fever/chills, genitourinary problems, headaches, heartburn, joint pain, loss of appetite, malaise, muscle aches, sinus congestion/drainage, rash, seizure, shortness of breath, sensory/motor loss, pain with inspiration, swelling/mass in abdomen, syncope, weakness, trouble walking Similar Symptoms Previously?: No Recently seen or treated by another doctor?: No Review of Systems - Adult - REVIEW OF SYSTEMS - ADULT Constitutional: reports: no symptoms reported Eyes: reports: no symptoms reported Ears, Nose, Mouth & Throat: reports: no symptoms reported Cardiovascular: reports: no symptoms reported Respiratory: reports: no symptoms reported Gastrointestinal: reports: see HPI, abdominal pain, nausea, vomiting. denies: hematemesis, diarrhea, difficulty swallowing Genitourinary: reports: no symptoms reported Musculoskeletal: reports: no symptoms reported Integumentary: reports: no symptoms reported Neurological: reports: no symptoms reported Psychiatric: reports: no symptoms reported Past History - Adult - PAST MEDICAL HISTORY-ADULT Review of Records: reports: Old Records Reviewed, Nursing Assessment Review, Medications Reviewed, Social history reviewed & non-contributory. Major Childhood Illnesses: reports: denies history Cardiovascular: reports: HTN Respiratory: reports: denies history Gastrointestinal: reports: denies history Obstetrical/Gynecological: reports: denies history Genitourinary: reports: denies history Musculoskeletal: reports: arthritis Neurological: reports: denies history Endocrine/Immune: reports: Diabetes, thyroid disorder Other Conditions: reports: denies history - PRIOR SURGERIES/PROCEDURES Surgical/Procedure History: reports: cholecystectomy, orthopedic (extremity), joint replacement, gastric bypass - IMMUNIZATION STATUS Childhood Immunizations: See Nurse Assessment Flu Vaccine: See Nurse Assessment - FAMILY HISTORY Family History: reviewed, not pertinent - SOCIAL HISTORY Smoking: denies Physical Exam-General - PHYSICAL EXAM-ADULT Initial Vital Signs Reviewed: Yes - CONSTITUTIONAL General Appearance: alert, moderate distress, obese. negative: anxious, slow to respond, obtunded, combative - EYES Eyes: PERRL/EOMI, pink conjunctivae - HEAD, EARS, NOSE, MOUTH & THROAT HENMT: normocephalic/atraumatic, moist mucous membranes - NECK Neck: non-tender, full range of motion, supple, normal inspection - RESPIRATORY Respiratory: lungs clear, normal breath sounds - CARDIOVASCULAR Cardiovascular: normal peripheral pulses, regular rate, rhythm, no edema - GASTROINTESTINAL (ABDOMEN) Abdominal Exam: normal bowel sounds, soft, tenderness. negative: distended, guarding, rigid, rebound - LYMPHATIC Lymphatic: no adenopathy. negative: axilla node tender, cervical node tenderness - MUSCULOSKELETAL Back Exam: normal inspection, no CVA tenderness, no vertebral tenderness Extremity: normal range of motion, non-tender, normal inspection. negative: erythema, inflammation, swelling, tenderness Peripheral Pulses: radial (R): 2+, radial (L): 2+ - SKIN Integumentary: diaphoresis, pallor. negative: warm/dry, jaundice, swelling, tenderness, warm - NEUROLOGIC Neurologic: grossly normal, no motor/sensory deficits - PSYCHIATRIC Psych/Mental Status: normal mood/affect, normal thought content, normal thought process, oriented x 3 Progress - PLAN OF CARE/RESULTS Progress/Plan/Lab Results: Vital Signs - 8 hr 11/28/18 17:10 Pulse Rate 88 Respiratory Rate 24 Blood Pressure 98/75 O2 Sat by Pulse Oximetry 100 Orders Category Date Time Status Saline Loc NOW Care 11/28/18 17:22 Ordered CBC WITH ELECTRONIC DIFF [HEME] Stat Lab 11/28/18 17:22 Uncollected COMPREHENSIVE METABOLIC PANEL [CHEM] Stat Lab 11/28/18 17:22 Uncollected URINALYSIS W/POSS RFLX CULT [URINALYSIS] Stat Lab 11/28/18 17:22 Uncollected Ketorolac [Toradol] Med 11/28/18 17:22 Once 30 mg IV NOW ONE Ns 1000 ml IV Bolus X1 Med 11/28/18 17:22 Ordered 0.9% Sodium Chloride Inj [Ns] 1,000 ml IV 999 mls/hr Ondansetron [Zofran] Med 11/28/18 17:22 Once 4 mg IV NOW ONE Laboratory Tests 11/28/18 11/28/18 11/28/18 17:39 18:00 18:00 WBC 10.52 RBC 4.50 L Hgb 13.4 L Hct 38.9 L MCV 86.4 MCH 29.8 MCHC 34.4 RDW Std Deviation 13.7 Plt Count 248 MPV 10.6 H Immature Gran % (Auto) 0.2 Neut % (Auto) 81.0 H Lymph % (Auto) 14.0 L Cameron % (Auto) 4.2 Eos % (Auto) 0.4 Baso % (Auto) 0.2 Immature Gran # (Auto) 0.02 Neut # (Auto) 8.53 H Lymph # (Auto) 1.47 Cameron # (Auto) 0.44 Eos # (Auto) 0.04 Baso # (Auto) 0.02 PT INR PTT (Actin FS) Sodium 134 L Potassium 5.1 Chloride 103 Carbon Dioxide 17 L Anion Gap 14 BUN 41 H Creatinine 1.9 H Estimated GFR/1.73 m2 46 BUN/Creatinine Ratio 22 Glucose 349 H POC Glucose 319 H Calculated Osmolality 292 Calcium 8.5 L Total Bilirubin 0.33 AST 22 ALT 26 Alkaline Phosphatase 105 Creatine Kinase Troponin T Total Protein 6.5 Albumin 4.1 Globulin 2.4 Albumin/Globulin Ratio 1.7 Acetone Level 11/28/18 11/28/18 11/28/18 18:00 18:00 18:00 WBC RBC Hgb Hct MCV MCH MCHC RDW Std Deviation Plt Count MPV Immature Gran % (Auto) Neut % (Auto) Lymph % (Auto) Cameron % (Auto) Eos % (Auto) Baso % (Auto) Immature Gran # (Auto) Neut # (Auto) Lymph # (Auto) Cameron # (Auto) Eos # (Auto) Baso # (Auto) PT 12.7 INR 0.89 PTT (Actin FS) 29.9 Sodium Potassium Chloride Carbon Dioxide Anion Gap BUN Creatinine Estimated GFR/1.73 m2 BUN/Creatinine Ratio Glucose POC Glucose Calculated Osmolality Calcium Total Bilirubin AST ALT Alkaline Phosphatase Creatine Kinase 112 Troponin T < 0.010 Total Protein Albumin Globulin Albumin/Globulin Ratio Acetone Level 11/28/18 18:00 WBC RBC Hgb Hct MCV MCH MCHC RDW Std Deviation Plt Count MPV Immature Gran % (Auto) Neut % (Auto) Lymph % (Auto) Cameron % (Auto) Eos % (Auto) Baso % (Auto) Immature Gran # (Auto) Neut # (Auto) Lymph # (Auto) Cameron # (Auto) Eos # (Auto) Baso # (Auto) PT INR PTT (Actin FS) Sodium Potassium Chloride Carbon Dioxide Anion Gap BUN Creatinine Estimated GFR/1.73 m2 BUN/Creatinine Ratio Glucose POC Glucose Calculated Osmolality Calcium Total Bilirubin AST ALT Alkaline Phosphatase Creatine Kinase Troponin T Total Protein Albumin Globulin Albumin/Globulin Ratio Acetone Level NEGATIVE Discussed results and plan of care with patient. Patient agrees with plan and verbalizes understanding. Result Diagrams: 11/28/18 18:00 11/28/18 18:00 - XRAY 1 XRAY Study: Chest [facility] - [address] [place] [address] [place], [place] [id number] [place] [address] - [address] [place] [address] Department of Imaging Patient: JORGITO KELLEY Date: 11/28/18#: [id number] : 1970ADM Status: PRE ERAcct#: [id number] Age/Sex: 48/MRoom/Bed: Loc: ED Ordering Physician: Daron East MD Family Physician: Reason for Procedure: sepsis protocol ___ Signed CHEST-1 VIEW - 11/28/2018 INDICATION: sepsis protocol COMPARISON: 03/25/2017 FINDINGS: The lungs are normally expanded and clear. Heart size and mediastinal contours are normal. No pneumothorax or pleural effusion. IMPRESSION: Negative exam. Electronically signed by Ernesto Grullon 11/28/2018 6:53 PM 11/28/181852 Interpreting Physician: Ernesto Grullon MD Dictated Date/Time: 11/28/181852 cc: Daron East MD;) XRAY Interpretation: See note - CT/MRI 1 CT Study: Renal Stone ([facility] - [address] , [address], [place] [address] [facility] - [address] [place] [address] Department of Imaging Patient: JORGITO KELLEY Date: 11/28/18#: [id number] : 1970ADM Status: REG ERAcct#: [id number] Age/Sex: 48/MRoom/Bed: Loc: ED Ordering Physician: Bnita Thorne Family Physician: Jan Salazar MD Reason for Procedure: Left flank pain Signed CT RENAL STONE SEARCH - 11/28/2018 INDICATION: Left flank pain COMPARISON: None FINDINGS: There is trace ascites. There is a small fat-containing umbilicus ventral hernia. There are apparent gastric bypass changes. There is an abnormally distended loop of bowel in the left mid abdomen which appears to mostly be small bowel. This measures around 4 cm. There is small bowel feces here. There is unusual swirling of the mesentery here as well. There is extremely severe vascular disease of all arteries. There are several small bilateral nonobstructing renal stones measuring up to 4 mm. There are moderate degenerative changes of the spine. No acute or suspicious bony lesion. IMPRESSION: 1. Questionable small bowel obstruction in the left mid abdomen. The findings suggest an internal hernia. 2. Bilateral nonobstructing renal stones. 3. Trace ascites. This exam was performed using automated exposure control, adjustment of mA or kV according to patient size, and/or use of iterative reconstruction technique Electronically signed by Ernesto Grullon 11/28/2018 7:41 PM 11/28/181940 Interpreting Physician: Ernesto Grullon MD Dictated Date/Time: 11/28/181933 cc: Binta Thorne; Jan Salazar MD) CT Results: See note - CONSULTS/PCP/HOSPITALIST Notification #1 *Consult/PCP/Hospitalist*: Dr. Arcos Time Discussed: 20:11 Reason/Comments: Admission Consult Disposition: Will see in ED, Admit #2 Consult: Dr. Christensen Time Discussed: 20:15 Reason/Comments: Consult Consult Disposition: Will see in ED Departure - Departure Date of Disposition Decision: 11/28/18 Time of Disposition Decision: 20:13 DIAGNOSIS: Small bowel obstruction, Hernia, Hyperglycemia Acute renal failure Qualifiers: Acute renal failure type: unspecified Qualified Code(s): N17.9 - Acute kidney failure, unspecified Disposition: ADMITTED INPATIENT 09 Certified Medical Emergency: Emergent Condition: Stable Referrals and Follow-Ups: Jan Salazar MD [Primary Care Provider] - - Critical Care Note This patient required my direct & personal management of CC.: Yes Total Time (mins): 45 Critical Care Statement: This patient required my direct personal management to treat or rule out processes, the absence of which, could potentiallly result in sudden, clinically significant life or limb threatening deterioration. Attestation - Physician/ LEAH Attestation Patient care was provided by Advanced Practice Provider:: Yes Advanced Practice Provider:: Binta Thorne Advanced Practice Provider documentation review:: The Mid-level provider documentation, treatment plan and medical decision making was reviewed by the physician who agrees with all treatment and medical decision making by the P. The physician spent face to face time with patient:: No Advanced Practice Provider documentation review:: Supervising physician onsite and consulted in the evaluation and care of this patient. The physician did not have a face to face encounter with the patient.
[2018-11-28 18:45] LABS: BASO# 0.02 X1000 (0.0-0.2); BASO% 0.2 % (0.0-0.8); EOS# 0.04 X1000 (0.0-0.7); EOS% 0.4 % (0.0-10.0); HEMATOCRIT 38.9 % (42.0-52.0); HEMOGLOBIN 13.4 g/dL (14.0-18.0); IMM GRAN# 0.02 X1000 (0.0-0.04); IMM GRAN% 0.2 % (0.0-0.5); LYMPH# 1.47 X1000 (1.2-3.4); MCH 29.8 PG (27-31); MCHC 34.4 g/dL (33-37); MCV 86.4 FL (81-99); MONO# 0.44 X1000 (0.11-0.59); MONO% 4.2 % (1.7-9.3); MPV 10.6 FL (7.4-10.4); NEUT# 8.53 X1000 (1.4-6.5); PLT 248 X1000 (130-400); RDW 13.7 % (11.5-14.5); WBC 10.52 X1000 (4.8-10.8)
[2018-11-28 18:49] LABS: INR 0.89; PROTIME 12.7 Seconds (11.0-16.0)
[2018-11-28 18:50] LABS: PTT 29.9 Seconds (22.3-41.8)
--- NOTE | 2018-11-28 18:55 | Diag Imaging Result Doc PS360 ---
CHEST-1 VIEW - 11/28/2018 INDICATION: sepsis protocol COMPARISON: 03/25/2017 FINDINGS: The lungs are normally expanded and clear. Heart size and mediastinal contours are normal. No pneumothorax or pleural effusion. IMPRESSION: Negative exam. Electronically signed by Ernesto Grullon 11/28/2018 6:53 PM
[2018-11-28 19:12] LABS: ALB/GLOB RATIO 1.7; ALBUMIN 4.1 g/dL (3.5-5.0); CALCIUM 8.5 mg/dL (8.8-10.2); CREATININE 1.9 mg/dL (0.7-1.2); POTASSIUM 5.1 mmol/L (3.5-5.1); TOTAL BILIRUBIN 0.33 mg/dL (0.20-1.00); TOTAL PROTEIN 6.5 g/dL (6.3-8.3)
--- NOTE | 2018-11-28 19:44 | Diag Imaging Result Doc PS360 ---
CT RENAL STONE SEARCH - 11/28/2018 INDICATION: Left flank pain COMPARISON: None FINDINGS: There is trace ascites. There is a small fat-containing umbilicus ventral hernia. There are apparent gastric bypass changes. There is an abnormally distended loop of bowel in the left mid abdomen which appears to mostly be small bowel. This measures around 4 cm. There is small bowel feces here. There is unusual swirling of the mesentery here as well. There is extremely severe vascular disease of all arteries. There are several small bilateral nonobstructing renal stones measuring up to 4 mm. There are moderate degenerative changes of the spine. No acute or suspicious bony lesion. IMPRESSION: 1. Questionable small bowel obstruction in the left mid abdomen. The findings suggest an internal hernia. 2. Bilateral nonobstructing renal stones. 3. Trace ascites. This exam was performed using automated exposure control, adjustment of mA or kV according to patient size, and/or use of iterative reconstruction technique Electronically signed by Ernesto Grullon 11/28/2018 7:41 PM
[2018-11-28] MEDS ORDERED: KEFZOL 1 GM/D5W 1 GM/50 ML IVPB IV ONE (20:49)
[2018-11-28] MEDS ORDERED: MARCAINE 0.25% PF/EPI 1:200,000 ONE (21:36)
[2018-11-28] MEDS ORDERED: LR 0 ML ONE (21:36)
[2018-11-28] MEDS ORDERED: DIPRIVAN 1% ONE (21:41)
[2018-11-28] MEDS ORDERED: XYLOCAINE-MPF 2% ONE (21:42)
[2018-11-28] MEDS ORDERED: ROBINUL ONE ×2 (21:42→22:28)
[2018-11-28] MEDS ORDERED: QUELICIN (DOSE) ONE (21:42)
[2018-11-28 21:46] LABS: URINE SOURCE CLEAN CATCH
[2018-11-28] MEDS ORDERED: BICITRA ONE (22:02)
[2018-11-28] MEDS ORDERED: SODIUM CHLORIDE 0.9% 10 ML ONE (22:09)
[2018-11-28] MEDS ORDERED: NEO-SYNEPHRINE ONE (22:09)
[2018-11-28] MEDS ORDERED: NORCURON ONE (22:14)
[2018-11-28] MEDS ORDERED: ZOFRAN ONE (22:14)
[2018-11-28] MEDS ORDERED: STERILE WATER INJ. ONE (22:14)
[2018-11-28 22:22] LABS: BILIRUBIN URINE NEGATIVE (NEGATIVE); BLOOD URINE NEGATIVE (NEGATIVE); COLOR YELLOW; GLUCOSE URINE NEGATIVE (NEGATIVE); KETONE URINE NEGATIVE (NEGATIVE); LEUKOCYTES URINE NEGATIVE (NEGATIVE); NITRITE URINE NEGATIVE (NEGATIVE); PROTEIN URINE TRACE mg/dL (NEGATIVE); SP GRAVITY URINE 1.019; TURBIDITY URINE CLEAR (CLEAR); UROBILINOGEN URINE NORMAL (NORMAL)
[2018-11-28 22:23] LABS: UR EPITHELIAL CELLS <10 /HPF (<10); URINE BACTERIA NEGATIVE /HPF; URINE RBC <10 /HPF (<10); URINE WBC <10 /HPF (<10)
--- NOTE | 2018-11-28 22:23 | HISTORY AND PHYSICAL ---
PRIMARY CARE PHYSICIAN: Dr. Jan Salazar. CHIEF COMPLAINT: Abdominal pain. HISTORY OF PRESENTING ILLNESS: A 48-year-old male with a history of diabetes mellitus type 2, and hypertension, presented to emergency department 1-day history of having abdominal pain. He described it as sharp pains and states that he was nauseated. He was evaluated in the emergency department. He had imaging done which did show a small bowel obstruction possibly from hernia. His case was discussed with General Surgery who recommended admission for further management. At the time of my examination, patient denied any headache, fever, chills, chest pain, shortness of breath or any weight changes but complained of abdominal pain. PAST MEDICAL HISTORY: Include diabetes mellitus type 2, hypertension. PAST SURGICAL HISTORY: Gastric bypass, cholecystectomy, right knee surgery. ALLERGIES: Bactrim. CURRENT MEDICATIONS: Allopurinol 300 mg p.o. daily, Norvasc 5 mg p.o. daily, Pepcid 20 mg p.o. b.i.d., glipizide 10 mg p.o. daily, hydrochlorothiazide 25 mg p.o. daily, levothyroxine 25 mcg p.o. daily, losartan 100 mg p.o. daily, Embeda ER 20/0.8 mg capsule p.o. nightly, Protonix 40 mg p.o. daily, Januvia 100 mg p.o. daily. SOCIAL HISTORY: No history of smoking, alcohol or illicit drug use. FAMILY HISTORY: No history of coronary disease. REVIEW OF SYSTEMS: Fourteen point review of system as listed in HPI. Other systems negative. PHYSICAL EXAMINATION: GENERAL: Cooperative, friendly male he is resting comfortably now. VITAL SIGNS: Temperature 96.6 degrees, pulse 80, respirations 24, blood pressure 98/75. HEENT: Atraumatic, normocephalic. Extraocular movements intact. PERRLA. NECK: Supple. CHEST: Clear to auscultation. CARDIOVASCULAR: Regular rate and rhythm. ABDOMEN: Soft. Diffuse tenderness. EXTREMITIES: No edema. NEUROLOGIC: He is awake, alert, oriented x3. : No bladder distention. SKIN: Warm. LABORATORIES AND STUDIES: WBC 10.52, hemoglobin 13.4, hematocrit 38.9, platelets 248,000. Sodium 134, potassium 5.1, chloride 103, CO2 17, BUN is 41, creatinine 1.9, glucose is 349. CT of the renal show small bowel obstruction and also suggestive of internal hernia. ASSESSMENT: This is a 48-year-old male with a history of diabetes mellitus type 2 and hypertension had presented to the emergency department with a 1-day history of having abdominal pain. He was evaluated in the emergency department. He had imaging done which did show small bowel obstruction. Subsequently, he will require admission further management. 1. Small bowel obstruction. 2. Diabetes mellitus type 2. 3. Acute kidney injury. 4. Hypertension. PLAN: 1. We will admit patient to medical floor with telemetry. 2. We will keep patient NPO. 3. Give patient adequate pain control antiemetic as needed. 4. Consult General Surgery. 5. Put patient on glycemic protocol with sliding scale insulin regimen. 6. Continue gentle hydration. Monitor renal function. 7. Monitor blood pressure closely and resume antihypertensive agents. 8. We will put patient on DVT prophylaxis SCD. 9. We will continue to follow and reassess. Make further recommendation based on patient's clinical course. cc: Ilya Arcos MD
[2018-11-28] MEDS ORDERED: NEOSTIGMINE ONE (22:28)
[2018-11-28] MEDS ORDERED: PITRESSIN ONE (23:19)
[2018-11-28] MEDS ORDERED: ALBUMIN 25% ONE (23:21)
[2018-11-28] MEDS ORDERED: DILAUDID ONE (23:41)
[2018-11-29] MEDS ORDERED: OFIRMEV 1000 MG/ISOTONIC SOLN 1,000 MG/100 ML BOTTLE ONE (00:16)
[2018-11-29] MEDS ORDERED: NS 1,000 ML ONE (00:40)
[2018-11-29] MEDS: NS 1,000 ML IV SCH ×4 (01:00→20:28)
[2018-11-29] MEDS ORDERED: ZOFRAN IV PRN (01:10)
[2018-11-29] MEDS: DILAUDID IV PRN ×7 (01:23→21:17)
[2018-11-29] MEDS: HUMULIN R SUBQ SCH ×5 (02:21→21:08)
[2018-11-29 05:15] LABS: BASO# 0.01 X1000 (0.0-0.2); BASO% 0.1 % (0.0-0.8); EOS# 0.02 X1000 (0.0-0.7); EOS% 0.2 % (0.0-10.0); HEMATOCRIT 32.4 % (42.0-52.0); HEMOGLOBIN 11.1 g/dL (14.0-18.0); LYMPH# 1.93 X1000 (1.2-3.4); LYMPH% 19.6 % (20.5-51.1); MCH 29.8 PG (27-31); MCHC 34.3 g/dL (33-37); MCV 87.1 FL (81-99); MONO% 6.1 % (1.7-9.3); MPV 10.2 FL (7.4-10.4); NEUT# 7.29 X1000 (1.4-6.5); PLT 203 X1000 (130-400); RBC 3.72 XMIL (4.7-6.1); RDW 13.5 % (11.5-14.5); WBC 9.85 X1000 (4.8-10.8)
[2018-11-29 05:44] LABS: AGAP 9; BUN 36 mg/dL (8-22); CALCIUM 8.1 mg/dL (8.8-10.2); CHLORIDE 110 mmol/L (98-107); COSMO 289; CREATININE 1.5 mg/dL (0.7-1.2); ESTIMATED GFR > 60; GLUCOSE 184 mg/dL (70-104); POTASSIUM 3.6 mmol/L (3.5-5.1); SODIUM 138 mmol/L (136-145); TCO2 19 mmol/L (25-35)
--- NOTE | 2018-11-29 09:02 | OPERATIVE NOTE ---
PROCEDURE DATE: 11/28/2018 PREOPERATIVE DIAGNOSES: 1. Small bowel obstruction. 2. Internal hernia. POSTOPERATIVE DIAGNOSES: 1. Small bowel obstruction. 2. Internal hernia. PROCEDURE PERFORMED: Exploratory laparotomy with lysis of adhesions, reduction of midgut small- bowel volvulus, and repair of internal hernia x2. TECHNIQUE: The patient was brought to the operating room and placed supine on the table. General anesthesia was induced. He was prepped and draped in the usual sterile fashion after a Stanford catheter was placed. We began by making a small incision above the umbilicus. I attempted to identify the fascia and enter the peritoneal cavity under direct vision with the Optiview device but could not easily identify the fascia with all of his excess loose skin and inability to locate. I therefore aborted the laparoscopic approach and went ahead and made a generous midline incision from the epigastrium down to the umbilicus with a knife, and carried this down through the subcutaneous tissues with cautery. The fascia was palpated and identified, and incised with cautery. I encountered numerous adhesions of omentum, small bowel, and colon to the anterior abdominal wall. These were taken down carefully with Metzenbaum scissors and cautery until I had full access into the abdominal cavity. I then began a thorough exploration. There was some dilated small bowel, especially what appeared to be the limb of jejunum heading from the jejunojejunostomy up to the ligament of Treitz. The cecum and terminal ileum were identified. I ran this back to the jejunojejunostomy, and then identified the duodenal limb and then identified the Nettie limb. I encountered two hernias, one at the defect of the mesentery of the jejunojejunostomy and one posterior to the Nettie limb which was actually in a retrocolic orientation. Once I reduced the small bowel out of these hernias and corrected the volvulus, the small bowel appeared to be completely viable without any lasting ischemia. I then closed both mesenteric defects with running 2-0 silk sutures, being careful not to compromise the blood supply to the bowel. I then returned the bowel back to its anatomic position. I did lyse numerous adhesions between the small bowel loops to completely identify all the points of pathology and there were no other problematic areas. I then returned the bowel back to its anatomic position and closed the fascia with a running #1 looped Maxon in two directions and then the skin with skin clips. He was awakened in stable condition and transferred to the recovery room. cc: MD Ilya Dong MD
--- NOTE | 2018-11-29 14:36 | GENERAL SURGERY CONSULTATION ---
DATE: 11/28/2018 REQUESTING PHYSICIAN: Dr. Caraballo. REASON FOR CONSULTATION: Abdominal pain and internal hernia. HISTORY OF PRESENT ILLNESS: This is a 48-year-old male who presented to the hospital this morning with acute onset of left-sided crampy abdominal pain without exacerbating factors. It was relieved some after Toradol in the ER. No nausea or vomiting. He does report subjective fever but his temperature in the hospital is normal. No prior episodes similar to this. PAST MEDICAL HISTORY: Diabetes, hypertension, hypothyroidism, gout, osteomyelitis. PAST SURGICAL HISTORY: Open gastric bypass, open cholecystectomy, jaw surgery. FAMILY HISTORY: Reviewed and noncontributory. SOCIAL HISTORY: Negative for tobacco, alcohol or illicit drug use. CURRENT MEDICATIONS: Unknown specifically, but he does know he takes something for diabetes, high blood pressure and thyroid disorder. REVIEW OF SYSTEMS: Ten systems reviewed and negative except as noted above. PHYSICAL EXAMINATION: Vital Signs: Temperature 97 degrees, pulse 88, respirations 24, blood pressure 98/75 initially, then 135/110 later. General: He is awake, alert, oriented x4. No acute distress. HEENT: Normocephalic, atraumatic. Extraocular muscles intact. Pupils equal, round, reactive to light. Sclerae anicteric. Moist mucous membranes. Neck: Supple. No thyromegaly. Cardiovascular: Regular rate and rhythm. Respiratory: Bilateral equal breath sounds. No work of breathing Gastrointestinal: Soft. Nondistended. He is tender in the left upper quadrant but without organomegaly, mass, rebound or guarding. Extremities: No clubbing, cyanosis, or edema. Skin: Warm and dry. No rash. Musculoskeletal: Moves all extremities equally and well. LABORATORY DATA: His white both white blood cell count is 10, hemoglobin 13, BUN 41, creatinine 1.5. IMAGING: CT of abdomen and pelvis was reviewed by me and does show a partial small bowel obstruction and mesenteric swelling consistent with internal hernia. ASSESSMENT AND PLAN: A 48-year-old male with abdominal pain, likely secondary to internal hernia and small-bowel obstruction. We will make sure he is hydrated and proceed urgently to the operating room for exploration. I discussed the risks, benefits, alternatives with him including bleeding, infection, injury to surrounding organs such as the intestines, liver or spleen the possible need for bowel resection, and other imponderables. He understands and agrees to proceed. cc: Colton Christensen MD
--- NOTE | 2018-11-29 20:25 | GENERAL SURGERY PROGRESS NOTE ---
DATE: 11/29/2018 SUBJECTIVE: The patient is feeling better today. No nausea or vomiting. He is tolerating liquids. He has not been out of bed yet or passed gas. OBJECTIVE: He is afebrile. Vital signs are stable.General: He is awake, alert, oriented x3. No acute distress. GI: Soft, nondistended, minimally tender. Incision incisional dressing clean and dry. LABORATORY: White blood cell count 9.8, hemoglobin 11, hematocrit 32, platelet count 203,000. Electrolytes reviewed and notable for improved BUN 36, creatinine 1.5. 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 He is improving. We will keep him on a liquid diet until he is having better bowel function. I have encouraged more ambulation. We will discontinue the Stanford catheter. cc: Colton Christensen MD
[2018-11-29] MEDS: TYLENOL PO PRN (21:08)
[2018-11-30] MEDS: DILAUDID IV PRN ×7 (02:46→21:34)
[2018-11-30] MEDS: HUMULIN R SUBQ SCH ×4 (06:41→21:15)
[2018-11-30 07:02] LABS: BASO# 0.01 X1000 (0.0-0.2); BASO% 0.1 % (0.0-0.8); EOS# 0.05 X1000 (0.0-0.7); EOS% 0.6 % (0.0-10.0); HEMATOCRIT 30.6 % (42.0-52.0); HEMOGLOBIN 10.3 g/dL (14.0-18.0); LYMPH# 1.61 X1000 (1.2-3.4); LYMPH% 19.3 % (20.5-51.1); MCH 29.5 PG (27-31); MCHC 33.7 g/dL (33-37); MCV 87.7 FL (81-99); MONO# 0.61 X1000 (0.11-0.59); MONO% 7.3 % (1.7-9.3); MPV 10.8 FL (7.4-10.4); NEUT# 6.05 X1000 (1.4-6.5); NEUT% 72.7 % (42.2-75.2); PLT 177 X1000 (130-400); RBC 3.49 XMIL (4.7-6.1); RDW 13.9 % (11.5-14.5); WBC 8.33 X1000 (4.8-10.8)
[2018-11-30 07:24] LABS: AGAP 11; BUN 19 mg/dL (8-22); CALCIUM 8.3 mg/dL (8.8-10.2); CHLORIDE 107 mmol/L (98-107); COSMO 283; CREATININE 1.1 mg/dL (0.7-1.2); ESTIMATED GFR > 60; GLUCOSE 186 mg/dL (70-104); POTASSIUM 3.3 mmol/L (3.5-5.1); SODIUM 138 mmol/L (136-145); TCO2 20 mmol/L (25-35)
[2018-11-30] MEDS: TYLENOL PO PRN (07:53)
[2018-11-30] MEDS ORDERED: VITAMIN D PO SCH (10:00)
[2018-11-30] MEDS ORDERED: POTASSIUM CHLORIDE 20 MEQ/SWI 20 MEQ/100 ML IVPB IV SCH (10:00)
[2018-11-30] MEDS: NORVASC PO SCH (10:28)
--- NOTE | 2018-11-30 10:53 | PROGRESS NOTE ---
DATE: 11/30/2018 SUBJECTIVE: This patient is feeling better. Tolerating clear liquid diet very well. OBJECTIVE: Vital Signs: Temperature 100.0 degrees, heart rate 110, respiratory rate 20, blood pressure 144/90, O2 saturation 96% on room air. General Examination: This is a 48-year-old, male, lying in bed, in no acute distress. HEENT: Head is normocephalic and atraumatic. Neck: No JVD noted. No carotid bruits. No lymphadenopathy. No thyromegaly. Cardiovascular Examination: S1 and S2 heard. No murmurs, gallops, or rubs. Regular rate and rhythm. Respiratory Examination: Clear bilaterally to auscultation. No work of breathing or using accessory muscles. Abdomen: Soft. A little bit tender to palpation around the periumbilical area but no signs of peritoneal irritation. Bowel sounds present. No organomegaly. Extremities: No clubbing, cyanosis, or edema. Peripheral pulses present in both legs. Neurological Examination: The patient is alert and oriented x3. Moves 4 extremities. Laboratory Data: White cell count 8.33, hemoglobin 10.3, hematocrit 38.6, platelets 177,000. BMP remarkable for potassium 3.3. Normal renal function. ASSESSMENT AND PLAN: 1. 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 Clinically, this patient is doing better. Dr. Christensen from general surgery is following this patient. We will follow recommendations. 2. Acute kidney injury, resolved after intravenous fluid administration. 3. Diabetes mellitus type 2. We will continue with sliding scale insulin, and Accu-Chek before meals and also at bedtime. 4. Hypertension. We will continue with home medications. 5. Disposition. At this point, following leads from general surgery. Patient will be discharged when he is cleared by general surgery. cc: Steven Hickman MD
[2018-11-30] MEDS ORDERED: KLOR-CON PO ONE (11:35)
--- NOTE | 2018-11-30 14:08 | GENERAL SURGERY PROGRESS NOTE ---
DATE: 11/30/2018 SUBJECTIVE: The patient is feeling better. He is somewhat sore but no severe pain. No nausea or vomiting. He is tolerating a liquid diet. He is ambulating. He has not passed gas yet. OBJECTIVE: T-max 100 degrees, current temperature 98.8 degrees, pulse ranging from 103 to 111 overnight and this morning, blood pressure 144/90, O2 saturation 96%.General: He is alert and oriented x4 in no acute distress. Respiratory: Bilateral equal breath sounds. No work of breathing. CV: Tachycardic and regular. GI: Soft nondistended, appropriately tender incision. Dressing is clean and dry. He has a few bowel sounds. Urine output 3400 mL. LABORATORY: White blood cell count 8, hemoglobin 10, hematocrit 30. Electrolytes reviewed and unremarkable. BUN now 19, creatinine 1.1. 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 I have encouraged ongoing ambulation. We will keep him on a full liquid diet today and await full return of bowel function. I anticipate discharge in the next 48 hours. cc: Colton Christensen MD
[2018-12-01] MEDS: DILAUDID IV PRN ×5 (01:42→15:14)
[2018-12-01 06:36] LABS: BASO# 0.01 X1000 (0.0-0.2); BASO% 0.1 % (0.0-0.8); EOS# 0.18 X1000 (0.0-0.7); EOS% 2.1 % (0.0-10.0); HEMATOCRIT 32.9 % (42.0-52.0); LYMPH# 1.97 X1000 (1.2-3.4); LYMPH% 22.8 % (20.5-51.1); MCH 29.5 PG (27-31); MCHC 33.4 g/dL (33-37); MCV 88.2 FL (81-99); MONO# 0.54 X1000 (0.11-0.59); MONO% 6.3 % (1.7-9.3); MPV 10.7 FL (7.4-10.4); NEUT# 5.93 X1000 (1.4-6.5); NEUT% 68.7 % (42.2-75.2); PLT 191 X1000 (130-400); RBC 3.73 XMIL (4.7-6.1); RDW 13.8 % (11.5-14.5); WBC 8.63 X1000 (4.8-10.8)
[2018-12-01 06:59] LABS: AGAP 15; BUN 11 mg/dL (8-22); CHLORIDE 103 mmol/L (98-107); COSMO 277; ESTIMATED GFR > 60; GLUCOSE 208 mg/dL (70-104); POTASSIUM 4.1 mmol/L (3.5-5.1); SODIUM 136 mmol/L (136-145); TCO2 18 mmol/L (25-35)
[2018-12-01] MEDS: HUMULIN R SUBQ SCH (07:25)
[2018-12-01] MEDS: NORVASC PO SCH (08:48)
[2018-12-01] MEDS ORDERED: COZAAR PO SCH (09:00)
[2018-12-01] MEDS ORDERED: LOPRESSOR PO SCH (09:00)
[2018-12-01] MEDS ORDERED: ZYLOPRIM PO SCH (09:00)
--- NOTE | 2018-12-01 11:38 | PROGRESS NOTE ---
DATE: 12/01/2018 SUBJECTIVE: The patient reports feeling fine, tolerating diet very well. OBJECTIVE: Vital Signs: Temperature 98.9 degrees, heart rate 108, respiratory rate 22, blood pressure 140/94, O2 saturation 99% on room air. General: This is a 48-year-old male, lying in bed in no acute distress. Cardiovascular: S1, S2 heard. No murmurs, gallops, or rubs. Regular rate and rhythm. Respiratory: Clear bilaterally to auscultation. No work of breathing or using accessory muscles. Abdomen: Soft, a little bit tender to palpation around the periumbilical area. No signs of peritoneal irritation. Bowel sounds present. No organomegaly. Extremities: No clubbing, cyanosis, or edema. Peripheral pulses present in both legs. Neurological: The patient is alert and oriented x3. Moves all 4 extremities. LABORATORY DATA: Reviewed. Hemoglobin is stable at 11.0 today, with normal BMP. ASSESSMENT AND PLAN: 1. 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 Clinically, this patient continues to improve. He is tolerating diet very well. The patient requests to be discharged today because he has some things to do tomorrow. Will contact Dr. Christensen to see that is okay from his standpoint. 2. Acute kidney injury, resolved. 3. Diabetes mellitus type 2. Will continue with sliding scale insulin and Accu-Chek before meals and also at bedtime. 4. Hypertension. Blood pressure medications in this case, Cozaar, will be restarted because renal function is back to normal. 5. Disposition. At this point, the patient will be discharged whenever he is cleared by General Surgery. cc: Steven Hickman MD
--- NOTE | 2018-12-01 12:10 | Diag Imaging Result Doc PS360 ---
EXAM: XRAY HIP UNILATERAL RT INDICATION: right hip pain TECHNIQUE: 2 views COMPARISON: None. FINDINGS: There is mild bone spurring at the ilial crest. There is no discrete fracture, dislocation, or significant intrinsic osseous lesion involving the hip. The hip joint space is preserved. There is a small chronic appearing soft tissue calcification superior to the greater trochanter. IMPRESSION: No evidence of acute osseous abnormality. Electronically signed by Sarthak Cr 12/01/2018 12:08 PM
--- NOTE | 2018-12-01 15:16 | GENERAL SURGERY PROGRESS NOTE ---
DATE: 12/01/2018 SUBJECTIVE: The patient is feeling much better. No significant pain. He is tolerating a liquid diet. He has passed gas. He is ambulating and voiding. OBJECTIVE: Vital Signs: He is afebrile. Vital signs are stable. General: He is awake, alert, oriented x3. No acute distress. CV: Regular rate and rhythm. Respiratory: Bilateral breath sounds. No work of breathing. GI: Soft, nondistended, minimally tender. Incisional dressing is clean and dry. Incision was examined. There is no leakage. There is no erythema. LABORATORY DATA: CBC and metabolic profile were reviewed and unremarkable today. ASSESSMENT AND PLAN: A 48-year-old male status post exploratory laparotomy, lysis of adhesions, and repair of internal hernia and mesenteric volvulus. He is much improved. He is ready for discharge. Instructions were given. cc: Colton Christensen MD
--- NOTE | 2018-12-01 15:20 | DISCHARGE SUMMARY ---
ADMISSION DATE: 11/28/2018 DISCHARGE DATE: 12/01/2018 DISCHARGE DIAGNOSES: 1. 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 2. Acute kidney injury, resolved. 3. Diabetes mellitus type 2. 4. Hypertension. CONSULTATIONS: Dr. Colton Christensen from general surgery. PROCEDURE: 1. Renal CT showed questionable small bowel obstruction in the left mid abdomen and findings also suggest an internal hernia with bilateral nonobstructing renal stones. 2. Exploratory laparotomy with lysis of adhesions, reduction of midgut small- bowel volvulus, and repair of internal hernia x2, performed by Dr. Christensen. 3. Hip x-ray showed no evidence of acute osseous abnormalities. HOSPITAL COURSE: In brief, this is a 48-year-old, male with a history of diabetes mellitus type 2 and hypertension who presented to the emergency department complaining a 1-day history of worsening abdominal pain. From the ER, general surgery was consulted who decided to take this patient to the OR for the procedure as mentioned above. The patient tolerated the procedure very well. Start having clear liquid diet. At the time of discharge, he was feeling fine. At this point, he has been cleared by surgery and he is supposed to be seen 1 to [address] Colton Christensen if needed. PHYSICAL EXAMINATION: Vital Signs: Temperature 98.2 degrees, heart rate 91, respiratory rate 22, blood pressure 147/73, O2 saturation 98% on room air. General Examination: This is a 48-year- old, male, lying in bed, in no acute distress. Cardiovascular Examination: S1 and S2 heard. No murmurs, gallops, or rubs. Regular rate and rhythm. Respiratory Examination: Clear bilaterally to auscultation. No work of breathing or using accessory muscles. Abdomen: Soft, nontender to palpation. Bowel sounds present. No organomegaly. Extremities: No clubbing, cyanosis, or edema. Peripheral pulses present in both legs. Neurological Examination: The patient is alert and oriented x3. Moves 4 extremities. DISCHARGE DISPOSITION: Home to self-care. FOLLOWUP: With Dr. Christensen in 1-2 weeks. LIST OF MEDICATIONS: We are not going to make any changes to his current medications. cc: MD JAVAN Potter
[2018-12-01 15:47] VITALS: BP 126/85
== END 2018-12-01 15:53 | disposition home or self-care (01) | DRG 329 ==
LOC: ED 17:01 → SUATTDRO 11-29 01:09 → 4N 11-29 01:09
PROVIDERS: ATTEND Internal Medicine
CPT/HCPCS: 71010; 71045; 73502; 74176; 80048; 80053; 81001; 82009; 82550; 82948; 83605; 84484; 85025; 85610; 85730; 86850; 86900; 86901; 87040; 87088; 94761; 94799; 97161; A9270; J0131; J0330; J0690; J1170; J1885; J2370; J2405; J3480; J7030; J7120; P9047; XXXXX